=== PATIENT | female | born 1945 | race Caucasian/White ===

== ENCOUNTER 2024-05-13 11:02 | Outpatient (AMB) | payer MEDICARE, SELFPAY ==
--- NOTE | 2024-05-13 11:04 | A.OFFVIS_ITS ---
Vital Signs 05/13/24 11:18 Height 4 ft 10 in Weight 122 lb BMI 25.5 BP 174/72 H Blood Pressure Location Rt brachial Position Sitting Pulse 95 Intake Visit Reasons: subareolar mass of left breast Intake Note: This patient presents for subareolar mass of left breast. Pt c/o; reports left breast mass, reports pain. 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 He actually goes to [facility] and apparently had a chest CT angiogram recently. He was noted to have left breast mass so we she was sent for mammogram and ultrasound which showed a mass on the left breast along with satellite masses, axillary lymph nodes was note of diffuse skin thickening as well. 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 Her last mammogram on record prior to this month was in 2014. She seems to have had this breast mass for a long time now. However lives alone and her friend Amy is the 1 who cares for her. She says that she has been going to [facility] for healthcare but was told that they would not take her insurance for her breast cancer. [facility] Medical History (Updated 05/13/24 @ 11:48 by Michael Landry MD) Hyperlipidemia Hypertension Diabetes mellitus Breast cancer, left Surgical History History of foot surgery History of left knee surgery Broken ribs Multiple rib fractures History of appendectomy Family History Other Family history unknown Social History Alcohol intake: never Patient Tobacco Use Status: Never used Tobacco Review of Systems Const Denies chills and Denies fever(s) Card Denies chest pain, Denies dyspnea and Denies dyspnea on exertion Resp Denies cough, Denies dyspnea and Denies dyspnea on exertion GI Denies hematochezia and Denies change in bowel habits Denies hematuria Musc Denies back pain and Denies limited range of motion Neuro Denies focal weakness and Denies convulsions Psych Denies depression and Denies mood swings Physical Exam Const Other: Appears her age, ambulating General: comfortable and no acute distress Orientation/consciousness: patient oriented x3 Neck Neck: Yes no lymphadenopathy Chest Other: Large, left breast mass, vague, seems to be more than 5 cm with note of skin changes, dimpling and induration, palpable lymph nodes in the left axilla Resp Auscultation: clear to auscultation bilaterally Cardio Rhythm: regular rhythm GI Palpation (GI): Soft to palpation, nontender and no guarding Neuro General: patient oriented x3 Assessment & Plan Assessment & Plan (1) Breast cancer, left: Code(s): C50.912 - Malignant neoplasm of unspecified site of left female breast Category: Medical Plan: She has what appears to be advanced left breast cancer, invasive ductal carcinoma, ERPR positive with metastatic disease in the lymph nodes. She also has skin changes consistent with skin involvement. She therefore has at least a T4 node positive cancer. I had a long discussion with her about the above. I told her that it is best for her to have a consultation with the oncologist about her options. She says she definitely does not want any chemotherapy or radiation at all. She says she is willing to have surgery. I told her that mastectomy would not be curative and the benefit will be mostly for palliation and as a code toilette? mastectomy. We had a long back and forth regards to this as she says she does not want to see any other doctor at this time. Eventually, I was able to convince her to see our oncologist service so that she will be better informed with regards to her breast cancer. I am uncertain if she will go for any metastatic workup at this time Her caregiver Amy says that they will see the oncologist and we will come back to me down the line in case she decides any toilet mastectomy if necessary. I spent 45 minutes with the patient for this visit. Orders: Referrals Hematology & Oncology Referral C50.912 - Malignant neoplasm of unspecified site of left female breast Coding Level of Care Code New Pt Level 4 (71299) Diagnoses Breast cancer, left C50.940
[2024-05-13 11:18] VITALS: BP 174/72; PULSE 95; BMI 25.5
== END 2024-05-13 11:42 | disposition home or self-care (01) ==
PROVIDERS: PCP Nurse Practitioner Family; Visit Provider Surgery
DX: C50.912 Malignant neoplasm of unspecified site of left female breast (principal)
CPT/HCPCS: 99204

== ENCOUNTER → 2024-05-13 11:02 | Outpatient (BNVA) | payer MEDICARE, SELFPAY | PROVIDERS: PCP Nurse Practitioner Family; Visit Provider Surgery | DX: C50.912 Malignant neoplasm of unspecified site of left female breast (principal) | CPT/HCPCS: 99202 ==

== ENCOUNTER → 2024-05-26 09:49 | Outpatient (BNV) | payer MEDICARE, SELFPAY | PROVIDERS: PCP Nurse Practitioner Family; Referring Provider Surgery; Visit Provider Internal Medicine | DX: C50.812 Malignant neoplasm of overlapping sites of left female breast (principal) | CPT/HCPCS: 99205; 99215; G2211 ==

== ENCOUNTER → 2024-06-09 14:48 | Outpatient (BNV) | payer MEDICARE, SELFPAY | PROVIDERS: PCP Nurse Practitioner Family; Visit Provider Radiology Diagnostic Radiology | DX: R51.9 Headache, unspecified (principal) | CPT/HCPCS: 70553 ==

== ENCOUNTER 2024-06-09 14:51 | Outpatient (REF) | payer MEDICARE, SELFPAY ==
--- NOTE | ~2024-06-09 | MR_ITS ---
EXAMINATION: MR BRAIN WITHOUT WITH CONTRAST CLINICAL Information: Headache. Decreased vision, left-sided. Malignancy, left breast. Concerning metastasis. COMPARISON: No priors. TECHNIQUE: Multiplanar, multisequence MRI of the brain was obtained before after the intravenous administration of 5.5 mL without reported immediate complications. FINDINGS: No restricted diffusion. No abnormal enhancement within the intra-axial and extra-axial compartment of the cranium. No acute intracranial hemorrhage, mass effect, midline shift, hydrocephalus or herniation. Multifocal, scattered, randomly distributed, infratentorial and supratentorial compartment and bilateral susceptibility signal foci. Cribriform morphology pattern hyperintense T2 FLAIR signal abnormality, basal ganglia. 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 Flow-void signal within the mean cerebral vessels is normal. Sellar/suprasellar region is normal. Craniocervical junction is intact and normal. MR/MR head/brain wo/w con IMPRESSION: No intracranial metastasis. Small vessel occlusive disease. No acute brain abnormality. Electronically signed by: Jb Contreras MD 06/18/2024 12:31 PM EDT
[2024-06-09] MEDS: gadobutroL 7.5 ML VIAL IVPUSH (16:05)
== END 2024-06-09 14:52 | disposition home or self-care (01) ==
LOC: HO.MRI 14:51
PROVIDERS: PCP Nurse Practitioner Family; Visit Provider Internal Medicine
DX: C50.912 Malignant neoplasm of unspecified site of left female breast (principal)
CPT/HCPCS: 70553; A9585

== ENCOUNTER 2024-06-15 09:40 | Outpatient (REF) | payer MEDICARE, SELFPAY ==
--- NOTE | ~2024-06-15 | PE_ITS ---
EXAMINATION: FLUORINE-18 FDG PET/CT SCAN CLINICAL INFORMATION: Initial treatment management. Malignant neoplasm of left breast. Advanced breast carcinoma. TECHNIQUE: 60 minutes following the intravenous administration of 11.10 mCi of fluorine 18 FDG, images from the base of skull to mid-thigh were obtained using a combined PET/CT scanner with CT scan based attenuation correction. No intravenous contrast was administered. Transverse, coronal, sagittal, and volume reconstruction projections were obtained. The patient's blood glucose as determined by a finger stick, was 118 mg/dL immediately prior to injection. The radiotracer was injected intravenously through a right antecubital superficial vein, without any complications. Total CT exam dose-length product 529.07 mGy-cm. * These CT images were obtained using dose optimization techniques as appropriate, variously including the following: Automated exposure control * Adjustment of mA and/or kV according to patient size (this includes techniques or standardized protocols for targeted exams where dose is matched to indication/reason for exam; i.e. extremities or head) * Use of iterative reconstruction technique COMPARISON: No relevant studies are available at the moment for comparison. FINDINGS: SUV MAX REFERENCE: Blood: 2.2 (194/267). Liver: 2.4 (158/267). HEAD AND NECK: No abnormal radiotracer uptake. No large intracranial hemorrhage, acute territorial infarct or significant shift of midline structures. CHEST: Ports and Devices: None Lungs: No abnormal radiotracer uptake. Pleura: No significant pleural effusion. Lymph Nodes: There are at least 2 hypermetabolic left axillary lymph nodes present one of which shows focal metallic density, likely represent biopsy clip with SUV max of 2.9 (192/267), consistent with presumed metastatic lymphadenopathy. In addition, at the left superior parasternal region there are 2 adjacent subcentimeter foci of hyper metabolic disease present with SUV max of 4.4 (197/267), most consistent with left internal mammary as well as prevascular anterior mediastinal lymph nodes. Mediastinum: There is no significant pericardial effusion/thickening. Breasts/Chest Wall: There is a 4.2 x 2.0 cm Central mildly hypermetabolic soft tissue mass present at posterior depth abutting the chest wall at upper inner quadrant with SUV max of 3.5, likely represent the site of clinically known malignancy. There is overlying mild diffuse skin thickening present associated with mild tracer activity. Note is also made of diffuse asymmetric trabecular thickening within the remainder of the left breast. ABDOMEN/PELVIS: Liver/Biliary System: No focal tracer avid disease. Evidence of gallstone. Pancreas: Normal. Spleen: No abnormal radiotracer uptake. No evidence of splenomegaly. Adrenal Glands: Both adrenal glands appear thickened without evidence of any tracer activity to suspect metastasis. Kidneys: No hydronephrosis, hydroureter or renal calculi bilaterally. Bowel: Diffuse increased tracer activity within the large bowel, may represent physiologic variation versus effect of metformin. Please correlate clinically. No evidence of bowel obstruction. Specific note is made of asymmetric mild increased tracer activity at the distal part of the pylorus/first part of the duodenum which may represent inflammatory versus neoplastic change with SUV max of 6.1 (147/267), for which direct visualization is usually recommended. Lymph Nodes: No tracer avid retroperitoneal, mesenteric or pelvic and/or groin lymphadenopathy. Pelvic Organs: The urinary bladder is underdistended. Multiple calcified as well as noncalcified masses are present within the enlarged uterus, most consistent with fibroids. Unilocular large left adnexal/ovarian cyst is present which appear photopenic on the PET component of the study, measures approximately 10.5 x 5.3 cm at its maximum transverse by anteroposterior dimension, likely represent ovarian cyst. Given its size, follow-up ultrasound as well as [employer] consult as appropriate is recommended. MUSCULOSKELETAL: Remarkable for focal hypermetabolic osseous disease involving the anterior neck of the left femur with SUV max of 4.8 (66/267), highly suspicious for osseous metastatic disease. The overlying cortex is intact. No evidence of any soft tissue component. In addition, linear increased tracer activity associated with sclerosis is noted along the posterior aspect of the right seventh rib with SUV max of 2.0 (180/267), also suspicious for evolving osseous metastatic disease. Curvilinear soft tissue calcification is noted at distal anterior right thigh without any PET correlate, may represent dystrophic skin calcification (CT: 13/267), for which direct visualization/clinical correlation as appropriate is recommended. VASCULAR: Extensive calcific atherosclerotic disease of the aorta including carotid and coronary arterial calcifications. No evidence of aneurysm. THE SITE(S) OF MOST INTENSE FDG AVIDITY AND SUV MAX: The distal part of the pylorus of the stomach/first part of the duodenum with SUV max of 6.1. Left femoral neck sclerotic hypermetabolic osseous lesion with SUV max of 4.8. Left breast mass seen posteriorly at upper inner quadrant with SUV max of 3.5. PET/PET CT fusion skull to thigh IMPRESSION: * Abnormal study. There is a 4.2 x 2.0 cm Central mildly hypermetabolic soft tissue mass present within the left breast at posterior depth abutting the chest wall at upper inner quadrant with SUV max of 3.5, likely represent the site of clinically known malignancy. There is overlying mild diffuse skin thickening present associated with mild tracer activity. Note is also made of diffuse asymmetric trabecular thickening within the remainder of the left breast. * At least 2 hypermetabolic left axillary lymph nodes are present one of which shows focal metallic density, likely represent biopsy clip with SUV max of 2.9, consistent with presumed metastatic lymphadenopathy. In addition, at the left superior parasternal region there are 2 adjacent subcentimeter foci of hyper metabolic disease present with SUV max of 4.4, most consistent with left internal mammary as well as prevascular anterior mediastinal lymph nodes. * Focal hypermetabolic sclerotic osseous lesion involving the anterior neck of the left femur with SUV max of 4.8, highly suspicious for osseous metastatic disease. The overlying cortex is intact. No evidence of any soft tissue component. In addition, linear increased tracer activity associated with sclerosis is noted along the posterior aspect of the right seventh rib with SUV max of 2.0, also suspicious for evolving osseous metastatic disease. * Asymmetric mild increased tracer activity at the distal part of the pylorus/first part of the duodenum with SUV max of 6.1, for which direct visualization is usually recommended. * Unilocular large left adnexal/ovarian cyst is present which appear photopenic on the PET component of the study, measures approximately 10.5 x 5.3 cm at its maximum transverse by anteroposterior dimension, likely represent ovarian cyst. Given its size, follow-up ultrasound as well as [employer] consult as appropriate is recommended. * Curvilinear soft tissue calcification is noted at distal anterior right thigh without any PET correlate, may represent dystrophic skin calcification, for which direct visualization/clinical correlation as appropriate is recommended. * Multiple calcified as well as noncalcified masses are present within the enlarged uterus, most consistent with fibroids. * Extensive calcific atherosclerotic disease of the aorta including carotid and coronary arterial calcifications. No evidence of aneurysm. Electronically signed by: Nikunj Corley MD 06/17/2024 03:08 PM EDT
== END 2024-06-15 09:41 | disposition home or self-care (01) ==
LOC: HO.PET 09:40
PROVIDERS: PCP Nurse Practitioner Family; Visit Provider Internal Medicine
DX: Z13.89 Encounter for screening for other disorder (principal)

== ENCOUNTER 2024-07-16 12:07 | Outpatient (REF) | payer MEDICARE, SELFPAY ==
[2024-07-16 12:24] LABS: MANUAL DIFF FLAG NO
[2024-07-16 12:26] LABS: Basophils Absolute Auto 0.1 X10*3/uL (0.0-0.2); Basophils Percent Auto 0.6 % (0-2); Eosinophils Absolute Auto 0.1 X10*3/uL (0.0-0.4); Eosinophils Percent Auto 1.4 % (0-4); Hemoglobin 9.1 g/dl (12.0-16.0); Imm Gran Abs Auto 0.02 X10*3/uL (0.00-0.03); Imm Gran Pct Auto 0.2 % (0.0-0.4); Lymphocytes Percent Auto 11.6 % (20-40); Mean Corpuscular HGB Conc 32.5 g/dl (31.0-35.0); Mean Corpuscular Hemoglobin 28.3 pg (27.0-33.0); Mean Corpuscular Volume 87.2 fL (80.0-98.0); Mean Platelet Volume 9.3 fL (9.4-12.3); Monocytes Absolute Auto 0.6 X10*3/uL (0.1-1.2); Monocytes Percent Auto 6.8 % (2-11); Neutrophils Percent Auto 79.4 % (45-73); Platelet Count 241 X10*3/uL (160-400); Red Blood Count 3.21 X10*6/uL (4.20-5.50); Red Cell Distribution Width 14.2 % (11.0-16.0); White Blood Count 8.8 X10*3/uL (4.8-10.8)
[2024-07-16 12:38] LABS: Alanine Aminotransferase 8 U/L (0-31); Albumin Level 3.6 g/dL (3.5-5.0); Alkaline Phosphatase 76 U/L (39-117); Anion Gap 15 (12-20); Aspartate Amino Transferase 25 U/L (5-31); Bilirubin Total 0.3 mg/dL (0.0-1.0); Blood Urea Nitrogen 24 mg/dL (9-16); Calcium 7.7 mg/dL (8.4-10.2); Carbon Dioxide 24 mmol/L (22-29); Chloride 109 mmol/L (96-108); Estimated Glomerular Filt Rate 45; Glucose Random 104 mg/dL (60-115); Potassium 4.2 mmol/L (3.3-5.1); Sodium 144 mmol/L (135-145)
== END 2024-07-16 12:08 | disposition home or self-care (01) ==
LOC: HO.LAB 12:07
PROVIDERS: PCP Nurse Practitioner Family; Visit Provider Internal Medicine
DX: C50.912 Malignant neoplasm of unspecified site of left female breast (principal)
CPT/HCPCS: 36415; 80053; 85025

== ENCOUNTER 2025-02-17 15:13 | Outpatient (REF) | payer MEDICARE, SELFPAY ==
--- NOTE | ~2025-02-17 | US_ITS ---
EXAMINATION: US KIDNEY BILATERAL HISTORY: ACUTE RENAL FAILURE TECHNIQUE: Real-time grayscale ultrasound imaging of the kidneys was performed and images were reviewed. COMPARISON: Correlation is made with a PET/CT scan dated 11/23/2024. FINDINGS: Right kidney: The right kidney measures 10.0 x 3.7 x 4.1 cm. Renal parenchymal echotexture and thickness are normal. There is a 4 mm upper pole cyst and a 1.4 x 0.8 x 1.2 cm cyst in the interpolar region which demonstrate wall calcification or an adjacent tiny nonobstructing calculus. There is no hydronephrosis. Left Kidney: The left kidney measures 9.5 x 5.6 x 4.4 cm. Renal parenchymal echotexture and thickness are normal. There are cysts in the interpolar region measuring 7 x 4 x 8 mm and 13 x 9 x 13 mm. There is no hydronephrosis or renal calculi. US/US renal BI IMPRESSION: Bilateral renal cysts as described. No hydronephrosis. Electronically signed by: Hero Chauhan MD 02/18/2025 07:11 AM EDT
--- OUTSIDE RECORDS SUMMARY | 2025-02-17 18:25 | XMS_ITS | Encounter Summary ---
Author Organization [employer] Address [address] [place] [address] Care Team Providers Care Photogravure Press Operator Name Role Phone Lety Nugent Primary Care Provider [phone] Giovanna Best DO Primary Care Provider [phone] Krishna Cruz Unavailable Sierra Eng MD Unavailable [phone] Encounter Details Date Type Department Care Team (Late st Contact Info) Description 08/30/2024 Orders Only [facility] [address] [place], [place] [id number] Lety Nugent FNP [address] [place] [address] Social History Tobacco Use Types Packs/Day Years Used Date Smoking Tobacco: Never Smokeless Tobacco: Never Alcohol Use Standard Drinks/Week Comments Not Currently 0 (1 standard drink = 0.6 oz pur e alcohol) Depression Answer Date Recorded Patient Health Questionnaire-9 Score 20 12/30/2023 Patient Health Questionnaire-9 Score 20 12/30/2023 Last PHQ-9: Questionnaire Data Not on file 0 12/30/2023 Housing Stability Answer Date Recorded What is your housing situation today? I have aletha campbell 06/09/[address] you li ve. Do you have problems with any of the following? None of the above 06/09/2023 Food Insecurity Answer Date Recorded Within the past 12 months, y ou worried that your food would run out before you got money to buy more: Never True 06/09/2023 Within the past 12 months,th e food you bought just didn't last and you didn't have enough money to get more: Never True Transportation Answer Date Recorded In the past 12 months, has l ack of transportation kept you from medical appts, meetings, work or from getting things needed for daily living? No 06/09/2023 Utilities Answer Date Recorded In the past 12 months, has t he electric, gas, oil or water company threatened to shut off services in your home? No 06/09/2023 Depression Answer Date Recorded Patient Health Questionnaire-2 Score 0 02/23/2024 Internet Access Answer Date Recorded Internet Access Q1 Yes 04/23/2024 Internet Access Q2 Not on file 04/23/2024 Comments No Sex and Gender Information Value Date Recorded Sex Assigned at Female 08/06/2022 2:01 PM EST Legal Sex Female 8:34 PM EDT Gender Identity Female 08/06/2022 2:01 PM EST Sexual Orientation Straight 10/31/2022 3: 16 PM EST documented as of this encounter Plan of Treatment Upcoming Encounters Date Type Department Care Team (Late st Contact Info) Description 02/23/2025 9:45 AM EDT Office Visit [facility] DENT[facility] [address] [place] [address] Franck De Leon Jr., DMD [address] [place] [address] 04/28/2025 9:45 AM EDT Office Visit [facility] MEDICAL [address] [place] [address] Giovanna Best DO [address] [place] [address] 07/08/2025 9:15 AM EST Office Visit [facility] MED[facility] [address] [place] [address] Giovanna Best DO [address] [place] [address] 08/10/2025 11:00 AM EST Office Visit [facility] DENT[facility] [address] [place] [address] Karen Kendall documented as of this encounter Procedures Procedure Name Priority Date/Time Associated Diagnosis Comments US DOPPLER EXT UPPER VENOUS LEFT Routine 08/28/2024 11:00 AM EST documented in this encounter Results * US DOPPLER EXT UPPER VENOUS LEFT (08/28/2024 11:00 AM EST) Anatomical Region Laterality Modality Body Ultrasound us Lety FINNEY IMG US PROCEDURES Final Result documented in this encounter Visit Diagnoses Not on filedocumented in this encounter Additional Health Concerns Assessment Noted Time PHQ-9 Depression Total Score: 20 024 2:15 PM EDT documented as of this encounter Care Teams Photogravure Press Operator Relationship Specialty Start Date End Date Lety Nugent FNP [address] [place] [address] PCP - General Family Medicine 05/12/24 09/29/24 Giovanna Best DO [address] [place] [address] PCP - General Family Medicine 09/30/24 Krishna Cruz [address] [place] [address] Consulting Physician Cardiology 10/26/24 Sierra Eng MD [address] [place] [id number] Consulting Physician Hematology and Oncology 10/26/24 documented as of this encounter
== END 2025-02-17 15:14 | disposition home or self-care (01) ==
LOC: HO.US 15:13
PROVIDERS: PCP Nurse Practitioner Family; Visit Provider Internal Medicine
DX: N17.9 Acute kidney failure, unspecified (principal)
CPT/HCPCS: 76775

== ENCOUNTER → 2025-02-17 15:16 | Outpatient (BNV) | payer MEDICARE, SELFPAY | PROVIDERS: PCP Nurse Practitioner Family; Visit Provider Radiology Diagnostic Radiology | DX: N20.0 Calculus of kidney (principal) | CPT/HCPCS: 76775 ==